=== PATIENT | female | born 1940 | race Caucasian/White ===

== ENCOUNTER 2023-12-02 14:02 | Emergency (ER) | payer OTHER, MEDICAID ==
[~2023-12-02] VITALS: Ht 152.4 cm; Wt 59.9 kg
[2023-12-02 14:04] VITALS: BP_SYST 136; PULSE 90; RESP 18; TEMP 98; O2SAT 98
[2023-12-02 15:33] LABS: EOSINOPHILS # (AUTO) 0.1 K/uL (0.0-0.4)
[2023-12-02 15:37] LABS: BASOPHILS % (AUTO) 0.3 % (0.0-2.0); EOSINOPHILS % (AUTO) 1.7 % (0.0-4.0); HEMATOCRIT 28.2 % (36-48); HEMOGLOBIN 9.7 g/dL (12.0-16.0); LYMPHOCYTES # (AUTO) 1.7 K/uL (1.0-5.5); LYMPHOCYTES % (AUTO) 22.5 % (20.5-51.5); MEAN CORPUSCULAR HEMOGLOBIN 31 pg (27-31); MEAN CORPUSCULAR HGB CONC 34 % (32-36); MEAN CORPUSCULAR VOLUME 91 fL (79.0-98.0); MONOCYTES # (AUTO) 0.5 K/uL (0.0-1.0); NEUTROPHILS # (AUTO) 5.3 K/uL (1.8-7.7); NEUTROPHILS % (AUTO) 69.5 % (40.0-70.0); PLATELET COUNT (AUTO) 266 K/uL (130-430); RED BLOOD CELL COUNT(AUTO) 3.09 MIL/uL (4.2-6.2); WHITE BLOOD COUNT (AUTO) 7.7 K/uL (4.8-10.8)
[2023-12-02] MEDS: MECLIZINE HCL 25 MG TABLET (ANITVERT) PO ONE (15:37)
[2023-12-02] MEDS: METOCLOPRAMIDE HCL 10 MG/2 ML VIAL IVP ONE (15:37)
[2023-12-02 15:43] LABS: INR 1.1 (0.8-1.2); PROTHROMBIN TIME 11.3 SECS (9.5-12.5)
[2023-12-02 15:46] LABS: ALANINE AMINOTRANSFERASE 17 U/L (12-78); ALBUMIN 3.1 g/dL (3.4-4.8); ANION GAP 10 (5-15); ASPARTATE AMINOTRANSFERASE 22 U/L (10-37); CALCIUM 7.9 mg/dL (8.4-11.0); CARBON DIOXIDE 24 mmol/L (23-29); CHLORIDE 103 mmol/L (98-107); CREATININE 1.03 mg/dL (0.55-1.30); GLUCOSE 242 mg/dL (74-106); POTASSIUM 3.7 mmol/L (3.5-5.1); SODIUM SERUM 137 mmol/L (136-145); TOTAL BILIRUBIN 0.8 mg/dL (0.0-1.0); TOTAL PROTEIN, SERUM 6.1 g/dL (6.4-8.3); UREA NITROGEN, BLOOD 29 mg/dL (8-21)
[2023-12-02 15:48] LABS: BILIRUBIN,DIRECT 0.2 mg/dL (0.0-0.3); CREATINE KINASE, TOTAL 204 U/L (26-192)
[2023-12-02 16:13] LABS: CKMB RELATIVE INDEX 2.5 (0.0-2.9); CREATINE KINASE MB 5.2 ng/mL (0-3.6)
[2023-12-02] MEDS ORDERED: ASPI-1457 PO (17:55)
[2023-12-02] MEDS ORDERED: MECL-261 PO (17:55)
[2023-12-02] MEDS: ASPIRIN 81 MG TABLET(ECOTRIN) PO ONE (18:08)
[2023-12-02 18:12] VITALS: BP_SYST 136; PULSE 90; RESP 18; TEMP 98; O2SAT 98
== END 2023-12-02 18:11 | disposition home or self-care (01) ==
LOC: SED 14:02
DX: R42 Dizziness and giddiness (principal); R11.2 Nausea with vomiting, unspecified
CPT/HCPCS: 99285; 96374; 70450; 71045; 80076; 80048; 82550; 82553; 85025; 85610; 85730; 84484; 36415; 93005; 82948; J2765; J8597